=== PATIENT | female | born 1995 | race Caucasian/White ===

== ENCOUNTER → 2016-05-04 | Outpatient (CLI) | payer BC ==
[2016-05-04 17:31] VITALS: BP 110/75
== END ==
LOC: MHUC 04:45
PROVIDERS: ATTEND Physician Assistant Medical
DX: J06.9 Acute upper respiratory infection, unspecified (principal); J40 Bronchitis, not specified as acute or chronic
CPT/HCPCS: 99213

== ENCOUNTER → 2016-06-10 | Outpatient (CLI) | payer BC ==
[~2016-06-10] MED LIST: AZIT250T81 PO; FLUO20TA28 PO; FLUT16SP NS; PANT20TA24 PO; TRAM-25 PO
--- NOTE | 2016-06-10 09:34 | Diagnostic Imaging Report ---
PROCEDURE: US abdomen complete. TECHNIQUE: Multiple real-time grayscale images were obtained over the abdomen in various projections. Indication: Mid abdominal, periumbilical pain. Comparison: None. Discussion: Sonographic evaluation of the abdomen was performed. The liver appears normal in echotexture and size. No hepatic mass identified. Biliary sludge is noted within the gallbladder lumen. There is no shadowing stone, wall thickening, or pericholecystic fluid. No evidence of intra or extrahepatic biliary duct dilatation. The common bile duct is normal measuring 0.4 cm. The pancreas appears normal as visualized. The spleen appears normal in echotexture and size measuring 9.6 cm. The visualized aorta and IVC appear within normal limits. The bilateral kidneys appear normal in echotexture and size without evidence of hydronephrosis or renal mass. The right kidney measures 10.2 cm. The left kidney measures 10.7 cm. There is no ascites or abnormal bowel loops identified. No sonographic Dahl sign was reported. Impression: 1. Incidental note of biliary sludge. Otherwise unremarkable abdominal ultrasound. Dictated by: Dictated on workstation # [id number]
--- NOTE | 2016-06-10 11:20 | Diagnostic Imaging Report ---
INDICATION: Abdominal pain postprandial. FINDINGS: Following injection of 8.4 mCi Tc99m, there is good uptake by the liver with prompt visualization of the gallbladder. There is free flow into the small bowel. Following 1.1 mcg CCK IV injection, the gallbladder ejection fraction is calculated to be 58 percent at 30 minutes. IMPRESSION: Patent common and cystic ducts with normal ejection fraction. Dictated by: Dictated on workstation # [id number]
== END ==
LOC: RAD 08:31
PROVIDERS: ATTEND Internal Medicine Gastroenterology
DX: R10.9 Unspecified abdominal pain (principal); R10.33 Periumbilical pain
CPT/HCPCS: 76700; 78226; A9537; J2805